=== PATIENT | male | born 1960 ===

== ENCOUNTER 2016-12-20 09:15 | Day surgery (SDC) | payer OTHER ==
[2016-12-20] MEDS ORDERED: Lactated Ringer's 500 ML IV ONE (11:08)
[2016-12-20] MEDS ORDERED: Propofol 10 mg/ml Inj (20 ML) ONE (12:11)
[2016-12-20 13:05] VITALS: RESP 11
[2016-12-20 13:33] VITALS: BP 99/68; PULSE 69; TEMP 96.9; O2SAT 95
== END 2016-12-20 13:37 | disposition home or self-care (01) ==
LOC: H.ENDO 09:15
PROVIDERS: ATTEND Internal Medicine Gastroenterology
DX: Z12.11 Encounter for screening for malignant neoplasm of colon (principal); K64.8 Other hemorrhoids; R12 Heartburn; K21.0 Gastro-esophageal reflux disease with esophagitis; K31.9 Disease of stomach and duodenum, unspecified; K44.9 Diaphragmatic hernia without obstruction or gangrene